=== PATIENT | female | born 1980 | race Caucasian/White ===

== ENCOUNTER 2016-07-25 06:37 | Emergency (ER) | payer MEDICARE | END 2016-07-25 10:54 | disposition home or self-care (01) | LOC: ER 06:37 | DX: K80.20 Calculus of gallbladder without cholecystitis without obstruction (principal); N83.202 Unspecified ovarian cyst, left side; E86.0 Dehydration; D72.829 Elevated white blood cell count, unspecified; F32.9 Major depressive disorder, single episode, unspecified; Z79.899 Other long term (current) drug therapy | CPT/HCPCS: 36415; 96361; 96374 ==